=== PATIENT | female | born 1950 | race Caucasian/White ===

== ENCOUNTER 2024-10-10 22:34 | Emergency (ER) | payer MEDICARE | END 2024-10-10 23:13 | disposition home or self-care (01) | LOC: JP.ED 22:34 | DX: L25.9 Unspecified contact dermatitis, unspecified cause (principal); I10 Essential (primary) hypertension; E11.9 Type 2 diabetes mellitus without complications; Z88.6 Allergy status to analgesic agent; Z88.5 Allergy status to narcotic agent; Z79.899 Other long term (current) drug therapy | CPT/HCPCS: 99283 ==